=== PATIENT | female | born 2000 | race Two or more races ===

== ENCOUNTER 2021-05-14 13:17 | Emergency (ER) | payer OTHER ==
[~2021-05-14] VITALS: Ht 157.5 cm; Wt 65.8 kg
[2021-05-14] MEDS ORDERED: MEDROLPACK PO (16:43)
== END 2021-05-14 17:51 | disposition home or self-care (01) ==
LOC: ER 13:17
DX: B34.9 Viral infection, unspecified (principal); Z20.822 Contact with and (suspected) exposure to COVID-19

== ENCOUNTER 2021-05-24 15:35 | Outpatient (CLI) | payer OTHER ==
[~2021-05-24 15:35] MED LIST: MEDROLPACK PO
== END 2021-05-24 15:45 | disposition home or self-care (01) ==
LOC: PPH VACUNA 15:35
PROVIDERS: ATTEND Emergency Medicine Pediatric Emergency Medicine
DX: Z23 Encounter for immunization (principal)

== ENCOUNTER 2022-01-23 08:00 | Outpatient (CLI) | payer OTHER | END 2022-01-23 08:05 | disposition home or self-care (01) | LOC: PPH VACUNA 08:00 | PROVIDERS: ATTEND Emergency Medicine Pediatric Emergency Medicine | DX: Z23 Encounter for immunization (principal) ==

== ENCOUNTER 2023-01-09 | Outpatient (CLI) | payer OTHER | END 2023-01-09 00:15 | disposition home or self-care (01) | LOC: PPH VACUNA | PROVIDERS: ATTEND Emergency Medicine Pediatric Emergency Medicine | DX: Z23 Encounter for immunization (principal) | CPT/HCPCS: 90686; G0008 ==